=== PATIENT | female | born 1950 | race African-American/Black ===

== ENCOUNTER 2020-03-01 14:59 | Emergency (ER) | payer OTHER, MEDICARE ==
[~2020-03-01] VITALS: Ht 157.5 cm; Wt 111.5 kg
[~2020-03-01 14:59] MED LIST: ALBU2.5V5 NEB; APIX5TAB3 PO; AZAT50TA20 PO; CARV12.547 PO; CEFD300C PO; FENT1PAT17 TD; FLUT16SP2 NS; FURO80TA72 PO; GABA-585 PO; GABA600T7 PO; GLIM4TAB8 PO; INSU100C SQ; INSU100I13 SQ; IPRA3AMP29 NEB; ISOS20TA2 PO; LEVO125T77 PO; LEVO150T PO; MELA3TAB19 PO; METF500T PO; METF500T16 PO; METO5TAB4 PO; ONDA8TAB9 PO; OXYC15TA61 PO; OXYC5TAB4 PO; POTA10TA5 PO; POTA20PA30 PO; POTA20TA4 PO; SPIR25TA5 PO; TORS20TA2 PO; TRIA15CR3 TP; ZOLP10TA PO; ZOLP5TAB PO
[2020-03-01] MEDS ORDERED: IPRATRPIUM/ALBUTEROL 0.5/2.5MG 3 ML NEBU. ONE (15:09)
[2020-03-01] MEDS ORDERED: DEXAMETHASONE SOD PHOS 10 MG/ML VIAL. IV ONE (15:15)
[2020-03-01] MEDS ORDERED: IPRATRPIUM/ALBUTEROL 0.5/2.5MG 3 ML NEBU. NEB ONE ×2 (15:15)
[2020-03-01 15:45] LABS: BASO # 0.1 x10^3/uL (0.0-0.2); BASO % 1 % (0-3); EOS % 0 % (0-3); HEMOGLOBIN 12.5 g/dL (12.0-15.5); LYMPH # 1.3 x10^3/uL (1.0-4.8); LYMPH % 7 % (24-48); MEAN CORPUSCULAR HEMOGLOBIN 23 pg (25-35); MEAN CORPUSCULAR HGB CONC 29 g/dL (31-37); MEAN CORPUSCULAR VOLUME 78 fL (79-100); MONO # 1.9 x10^3/uL (0.0-1.1); MONO % 10 % (0-9); NEUT # 15.1 x10^3uL (1.8-7.7); NEUT % 82 % (31-73); PLATELET COUNT 306 x10^3/uL (140-400); RED BLOOD COUNT 5.48 x10^6/uL (3.50-5.40); RED CELL DISTRIBUTION WIDTH 19.1 % (11.5-14.5); WHITE BLOOD COUNT 18.4 x10^3/uL (4.0-11.0)
[2020-03-01] MEDS ORDERED: ALBUTEROL SULFATE 2.5 MG/3 ML NEBU. ONE (15:45)
[2020-03-01 15:51] LABS: BGAS PH 7.22 (7.35-7.45)
[2020-03-01] MEDS ORDERED: KETAMINE HCL 500 MG/10 ML VIAL. ONE (16:00)
[2020-03-01] MEDS ORDERED: VECURONIUM 10 MG VIAL. IV ONE ×2 (16:00→18:45)
[2020-03-01] MEDS ORDERED: FUROSEMIDE 40 MG/4 ML VIAL IVP ONE ×2 (16:00→18:45)
[2020-03-01] MEDS ORDERED: ETOMIDATE 40 MG/20 ML VIAL. ONE (16:00)
--- NOTE | 2020-03-01 16:06 | RAD ---
EXAM: Chest, single view. HISTORY: Respiratory failure. COMPARISON: 05/11/2013 FINDINGS: A frontal view of the chest is obtained. There is diffuse interstitial infiltrate. There ar e suspected small left greater than right pleural effusions. There is a prominent cardiac silhouette. There is no pneumothorax. IMPRESSION: Diffuse interstitial infiltrate and suspected small left greater than right pleural effus ions. Electronically signed by: Loren Nuno MD (03/01/2020 4:03 PM) [facility]
[2020-03-01 16:08] LABS: CREATININE 2.3 mg/dL (0.6-1.0); GFR 25.6; POTASSIUM 4.6 mmol/L (3.5-5.1)
[2020-03-01 16:14] LABS: ALBUMIN 3.3 g/dL (3.4-5.0); ALBUMIN/GLOBULIN RATIO 0.6 (1.0-1.7); TOTAL BILIRUBIN 0.4 mg/dL (0.2-1.0); TOTAL PROTEIN 8.5 g/dL (6.4-8.2)
[2020-03-01] MEDS ORDERED: NITROGLYCERIN PREMIX 250 ML IV ONE (16:15)
--- NOTE | 2020-03-01 16:23 | PHYS DOC ---
Past History Past Medical History: CHF, COPD, Diabetes, Hypertension Past Surgical History: Appendectomy, Colectomy, Hysterectomy Alcohol Use: None Drug Use: None General Adult EDM: Chief Complaint: SHORTNESS OF BREATH HPI: HPI: Patient is a 69-year-old female brought in by EMS for hypoxia. Patient family states that she has been satting in the 50s to 60s today. Her oxygen was recently placed on 5 L nasal cannula 12. On EMS arrival she was placed on CPAP and O2 sats improved to the mid 70s. Patient is obtunded but will awaken to voice and follow commands. Per family she was at baseline yesterday. They deny that she has any COVID-19 symptoms such as cough or fever. Patient has a history significant for CHF and COPD. Also with a history of diabetes with a recent hospitalization for DKA, other history limited by patient's mental status and CPAP Review of Systems: Review of Systems: All other systems within normal limits except for as noted in the HPI, also limited by patient's condition Current Medications: Current Meds: Current Medications Medications (Trade) Dose Ordered Sig/Bishop Start Time Stop Time Status Last Admin Dose Admin Albuterol Sulfate (Ventolin) 2.5 mg STK-MED ONCE 03/01/20 15:45 03/01/20 15:45 DC Albuterol/ Ipratropium (Duoneb) 3 ml 1X ONCE 03/01/20 15:15 03/01/20 15:24 DC Dexamethasone Sodium Phosphate (Decadron) 10 mg 1X ONCE 03/01/20 15:15 03/01/20 15:24 DC 03/01/20 15:15 10 MG Furosemide (Lasix) 40 mg 1X ONCE 03/01/20 16:00 03/01/20 16:03 DC Nitroglycerin/ Dextrose 250 ml @ 0 mls/hr 1X ONCE 03/01/20 16:15 03/01/20 16:16 UNV Allergies: Allergies: Allergies Coded Allergies Type Severity Reaction Last Updated Verified trandolapril Allergy Severe rash 05/11/13 No KANG Inhibitors Allergy Unknown 05/11/13 No Physical Exam: PE: Constitutional: Well developed, well nourished, obese, lethargic. [] HENT: Normocephalic, atraumatic, bilateral external ears normal, nose normal. [] Eyes: PERRLA, conjunctiva normal, no discharge. [] Neck: No rigidity, supple, no stridor. [] Cardiovascular: Regular rate and rhythm, cool extremities, capillary refill 1 second, clubbing of fingers [] Lungs & Thorax: Tolerating BiPAP, tachypneic, bilateral coarse breath sounds s [] Abdomen: Soft, nondistended. Skin: Warm, dry, no erythema, no rash. [] Extremities: No deformities,, 1+ pitting lower extremity edema [] Neurologic: Responds to voice and will follow commands [] . [] Current Patient Data: Labs: Laboratory Tests Test 03/01/20 15:05 03/01/20 15:08 03/01/20 15:30 White Blood Count 18.4 x10^3/uL (4.0-11.0) H Red Blood Count 5.48 x10^6/uL (3.50-5.40) H Hemoglobin 12.5 g/dL (12.0-15.5) Hematocrit 43.0 % (36.0-47.0) Mean Corpuscular Volume 78 fL (79-100) L Mean Corpuscular Hemoglobin 23 pg (25-35) L Mean Corpuscular Hemoglobin Concent 29 g/dL (31-37) L Red Cell Distribution Width 19.1 % (11.5-14.5) H Platelet Count 306 x10^3/uL (140-400) Neutrophils (%) (Auto) 82 % (31-73) H Lymphocytes (%) (Auto) 7 % (24-48) L Monocytes (%) (Auto) 10 % (0-9) H Eosinophils (%) (Auto) 0 % (0-3) Basophils (%) (Auto) 1 % (0-3) Neutrophils # (Auto) 15.1 x10^3uL (1.8-7.7) H Lymphocytes # (Auto) 1.3 x10^3/uL (1.0-4.8) Monocytes # (Auto) 1.9 x10^3/uL (0.0-1.1) H Eosinophils # (Auto) 0.0 x10^3/uL (0.0-0.7) Basophils # (Auto) 0.1 x10^3/uL (0.0-0.2) Platelet Estimate Pending POC Venous pH 7.17 (7.32-7.42) L POC Venous pCO2 76 mmHg (41-51) H POC Venous pO2 52 mmHg (20-40) H Venous Blood HCO3 28 mmol/L (24-28) POC Venous O2 Saturation (Juliano) 75 % POC FiO2 21 Sodium Level 140 mmol/L (136-145) Potassium Level 4.6 mmol/L (3.5-5.1) Chloride Level 99 mmol/L (98-107) Carbon Dioxide Level 26 mmol/L (21-32) Anion Gap 15 (6-14) H Blood Urea Nitrogen 52 mg/dL (7-20) H Creatinine 2.3 mg/dL (0.6-1.0) H Estimated GFR (Cockcroft-Gault) 25.6 BUN/Creatinine Ratio 23 (6-20) H Glucose Level 130 mg/dL (70-99) H Calcium Level 9.0 mg/dL (8.5-10.1) Total Bilirubin 0.4 mg/dL (0.2-1.0) Aspartate Amino Transferase (AST) 226 U/L (15-37) H Alanine Aminotransferase (ALT) 88 U/L (14-59) H Alkaline Phosphatase 180 U/L (46-116) H SK-Gtr-I-Type Natriuretic Peptide 9323 pg/mL (0-124) H Total Protein 8.5 g/dL (6.4-8.2) H Albumin 3.3 g/dL (3.4-5.0) L Albumin/Globulin Ratio 0.6 (1.0-1.7) L Glucose (Fingerstick) 142 mg/dL (70-99) H Blood pH 7.22 (7.35-7.45) L Blood Gas PCO2 75 mmHg (35-45) *H Blood Gas PO2 45 mmHg (80-100) *L Blood Gas HCO3 31 mmol/L (22-26) H Arterial Bld O2 Saturation (Calc) 69 % (92-99) L FiO2 100 % Vital Signs: Vital Signs Date Time Temp Pulse Resp B/P (MAP) Pulse Ox O2 Delivery O2 Flow Rate FiO2 03/01/20 15:55 76 23 148/83 (104) 90 BiPAP/CPAP 03/01/20 15:14 96.9 EKG: EKG: Sinus rhythm, normal axis, no ST elevation or depression, T wave inversions in lead III, aVF. [] No prior EKG for comparison Radiology/Procedures: Radiology/Procedures: PROCEDURE: CHEST AP ONLY EXAM: Chest, single view. HISTORY: Respiratory failure. COMPARISON: 05/11/2013 FINDINGS: A frontal view of the chest is obtained. There is diffuse interstitial infiltrate. There are suspected small left greater than right pleural effusions. There is a prominent cardiac silhouette. There is no pneumothorax. IMPRESSION: Diffuse interstitial infiltrate and suspected small left greater clement n right pleural effusions. [] Impressions: I feel the chest x-ray is more consistent with a picture of CHF Heart Score: Risk Factors: Risk Factors: DM, Current or recent (<one month) smoker, HTN, HLP, family history of CAD, obesity. Risk Scores: Score 0 - 3: 2.5% MACE over next 6 weeks - Discharge Home Score 4 - 6: 20.3% MACE over next 6 weeks - Admit for Clinical Observation Score 7 - 10: 72.7% MACE over next 6 weeks - Early Invasive Strategies Course & Med Decision Making: Course & Med Decision Making Pertinent Labs and Imaging studies reviewed. (See chart for details) Patient was placed on BiPAP, intubation materials ready. Patient's oxygen saturations were 70%. Switch of her BiPAP with 100% FiO2. Patient was given 2 nebulizer treatments with slight improvement. Chest x-ray is consistent with CHF given Lasix and catheter milligrams IV nitroglycerin. She is tolerating BiPAP well not requiring sedation. Lactate of 8 likely due to prolonged hypoxic state. JACK, previous creatinine 1.3. Flu negative. White blood cell count 18, will cover with antibiotics. Discussed with Dr. Salazar will accept patient [place]. Total critical care time: 100 The time involved in the performance of separately reportable/billable procedures was not counted toward critical care time. Due to a high probability of clinically significant, life-threatening deterioration the patient required a high level of care to intervene emergently and I personally spent this critical time directly and personally managing the patient. The critical care time included obtaining a history, examination of the patient, assessment of vital signs, ordering and review of studies, ar ranging urgent treatment with development of a management plan, evaluation of patient's response to treatment, frequent reassessment, and discussions with other providers and/or family members. [] Dragon Disclaimer: Dragon Disclaimer: This electronic medical record was generated, in whole or in part, using a voice recognition dictation system. Departure Departure: Impression: Primary Impression: Bilateral pneumonia Additional Impressions: JACK (acute kidney injury) Respiratory failure with hypoxia and hypercapnia Elevated troponin CHF (congestive heart failure) Disposition: 02 DC/TRF OTHER SHORT TERM HOS Admitting Physician: Cassie Griffiths Condition: CRITICAL Referrals: JAC FANG MD (PCP) ROLANDO NAJERA MD Mar 01, 2020 16:23
[2020-03-01 16:35] LABS: INFLUENZA A PATIENT NEGATIVE (NEGATIVE); INFLUENZA B PATIENT NEGATIVE (NEGATIVE)
--- NOTE | 2020-03-01 16:45 | EKG ---
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
[2020-03-01] MEDS ORDERED: AZITHROMYCIN 500 MG in IV NORMAL SALINE 250ML 250 ML IV ONE (17:00)
[2020-03-01 17:02] LABS: AMORPHOUS SEDIMENT,UR PRESENT /HPF; BACTERIA,URINE 0 /HPF (0-FEW); BILIRUBIN,URINE NEG (NEG); CLARITY,URINE CLOUDY; COLOR,URINE YELLOW; GLUCOSE,URINE NEG (NEG); HYALINE CASTS, URINE OCC /HPF; NITRITE,URINE NEG (NEG); RBC,URINE RARE /HPF (0-2); WBC,URINE RARE /HPF (0-4)
[2020-03-01] MEDS ORDERED: PIPERACILLIN/TAZOBACTAM 3.375 GM VIAL IV ONE (17:18)
[2020-03-01] MEDS ORDERED: AZITHROMYCIN 500 MG VIAL. IV ONE (17:18)
[2020-03-01] MEDS ORDERED: IV NORMAL SALINE 250ML 250 ML ONE (17:18)
[2020-03-01] MEDS ORDERED: IV NORMAL SALINE 50ML 50 ML ONE (17:18)
[2020-03-01] MEDS ORDERED: cefTRIAXone SODIUM 1 GM VIAL ONE (17:19)
[2020-03-01 17:22] LABS: BGAS PH 7.3 (7.35-7.45)
[2020-03-01 17:53] LABS: % BANDS 4 % (0-9); % LYMPHS 8 % (24-48); % MONOS 13 % (0-10); % MYELOS 1 % (0-0); % SEGS 74 % (35-66)
[2020-03-01 17:54] LABS: ANISOCYTOSIS SLIGHT; PLT ESTIMATE ADEQUATE (ADEQUATE)
[2020-03-01 17:55] LABS: HYPOCHROMIA SLIGHT
[2020-03-01] MEDS ORDERED: EPINEPHrine SYRINGE 1 MG/10 ML SYRINGE ONE (18:20)
[2020-03-01] MEDS ORDERED: ETOMIDATE 40 MG/20 ML VIAL. INJ ONE (18:45)
--- NOTE | 2020-03-01 19:08 | RAD ---
Exam: Chest one view INDICATION: Status post intubation TECHNIQUE: Frontal view of the chest Comparisons: 03/01/2020 FINDINGS: Endotracheal tube with tip in the right mainstem bronchus. The distal extent of the enteric tube is not well seen. Heart is enlarged pulmonary vessels are within normal limits. Hazy opacities at the lungs bilaterally with more focal consolidation at the left lung base. IMPRESSION: 1. Endotracheal tube in the right mainstem bronchus. Recommend repositioning. 2. Enteric tube distal extent is not well assessed. Recommend further evaluation with abdominal radi ograph when patient's condition allows. FOR INTERNAL CODING PURPOSES Critical result: Findings discussed with [place] at 03/01/2020 7:01 PM. RESULT CODE: (C) Electronically signed by: Manish Figueroa MD (03/01/2020 7:06 PM) [facility]
[2020-03-01 19:43] LABS: BGAS PH 7.22 (7.35-7.45)
[2020-03-01 19:45] VITALS: BP 96/54
--- NOTE | 2020-03-01 20:04 | RAD ---
Exam: Chest one view INDICATION: Status post pulling back endotracheal tube TECHNIQUE: Frontal view of the chest Comparisons: 03/01/2020 FINDINGS: Endotracheal tube with tip approximately 2 cm above the tammy. Enteric tube traverses below the diap hragm distal extent is not well seen. Remainder of the exam is unchanged. IMPRESSION: Interval retraction of the endotracheal tube which is now in appropriate position. Electronically signed by: Manish Figueroa MD (03/01/2020 8:02 PM) [facility]
[2020-03-01] MEDS ORDERED: MIDAZOLAM HCL PF 5 MG/5 ML VIAL. IV ONE (20:15)
[2020-03-01 20:49] LABS: BGAS PH 7.27 (7.35-7.45)
--- NOTE | 2020-03-01 22:16 | EKG ---
[address] [address] Test Date: 2020-03-01 Test Time: 20:03:52 Pat Name: LUIS A ROSARIO Department: Room: Gender: F Tig Welder: : 1950 Requested By: LAURE CLEMENS Order Number: [id number] Reading MD: Eric Felix Measurements Intervals [place] Rate: 76 P: 154 [place]: 140 QRS: -7 QRSD: 74 T: -24 QT: 444 QTc: 499 Interpretive Statements SINUS RHYTHM LEFT ATRIAL ABNORMALITY LEFTWARD AXIS T ABNORMALITY IN INFERIOR LEADS PROLONGED QT ABNORMAL ECG Electronically Signed On 03-05-2020 14:25:52 DIRECTOR OF MARKET ANALYSIS by Eric Felix
--- NOTE | 2020-03-04 09:55 | NUR ---
IP: notified IP at [facility] of COVID result.
== END 2020-03-01 20:47 | disposition short-term general hospital (02) ==
LOC: ER 14:59
DX: J18.9 Pneumonia, unspecified organism (principal); N17.9 Acute kidney failure, unspecified; J96.91 Respiratory failure, unspecified with hypoxia; J96.92 Respiratory failure, unspecified with hypercapnia; R77.8 Other specified abnormalities of plasma proteins; I11.0 Hypertensive heart disease with heart failure; I50.9 Heart failure, unspecified; J44.9 Chronic obstructive pulmonary disease, unspecified; E11.9 Type 2 diabetes mellitus without complications; R60.0 Localized edema; Z20.828 Contact with and (suspected) exposure to other viral communicable diseases; Z90.89 Acquired absence of other organs; Z90.710 Acquired absence of both cervix and uterus; Z90.49 Acquired absence of other specified parts of digestive tract; Z88.8 Allergy status to other drugs, medicaments and biological substances
CPT/HCPCS: 31500; 36415; 36600; 51702; 71045; 80053; 81001; 82803; 82947; 83605; 83880; 84484; 85007; 85025; 85379; 87040; 87804; 93005; 94640; 96365; 96366; 96368; 96375; 99291; 99292; C9803; J0456; J0696; J1100; J1940; J2250; J3490; J7050; U0003; 94002